=== PATIENT | female | born 1980 | race Caucasian/White ===

== ENCOUNTER 2023-07-25 11:59 | Emergency (ER) | payer MEDICAID ==
[~2023-07-25] VITALS: Ht 149.9 cm; Wt 77.1 kg
[2023-07-25 12:14] VITALS: BP 130/71; PULSE 102; RESP 16; TEMP 98.1; O2SAT 97
[2023-07-25 12:50] VITALS: BP 130/71; PULSE 102; RESP 16; TEMP 98.1; O2SAT 97
== END 2023-07-25 12:30 | disposition left against medical advice (07) ==
LOC: MED 11:59
DX: R50.9 Fever, unspecified (principal); Z53.21 Procedure and treatment not carried out due to patient leaving prior to being seen by health care provider
CPT/HCPCS: 99281